=== PATIENT | male | born 2000 | race Caucasian/White ===

== ENCOUNTER 2020-01-18 00:21 | Emergency (ER) | payer OTHER, SELFPAY ==
--- NOTE | ~2020-01-18 | CT_ITS ---
EXAMINATION: CT abdomen pelvis w con DATE: 01/18/2020 02:00 INDICATION: Low abdominal pain. TECHNIQUE: Computed tomography (CT) of the abdomen and pelvis was performed with 100 mL Omnipaque 350 intravenous contrast. Automated exposure control and iterative reconstruction technique were employe d. The dose-length product was 367.91 mGy-cm. COMPARISON: None. FINDINGS: The visualized portions of the lung bases are clear without pneumonia or pleural effusion. The heart size is normal. No pericardial effusion. The liver, gallbladder, spleen, pancreas, and adre nal glands are normal. There is mild bilateral hydronephrosis and hydroureter, likely secondary to ma rked bladder distention. There are no dilated loops of bowel. The appendix is normal. There are no pa thologically enlarged lymph nodes. There is no free intraperitoneal fluid. There is mild lumbar spond ylosis. IMPRESSION: 1. Mild bilateral hydronephrosis and hydroureter, likely secondary to marked gallbladder distention. Reviewed, dictated and finalized at location A. IMPRESSION: 1. Mild bilateral hydronephrosis and hydroureter, likely secondary to marked ga llbladder distention.
[2020-01-18 00:23] VITALS: BP 133/92; PULSE 86; RESP 16; TEMP 36.6; O2SAT 99
--- NOTE | 2020-01-18 00:39 | ED.ALCOHOL ---
HPI - Alcohol General Chief Complaint: Alcohol Stated Complaint: n/v Time Seen by Provider: 01/18/20 00:22 Source: patient Mode of arrival: EMS Limitations: no limitations History of Present Illness HPI narrative: This patient is a 19 year old male who presents for evaluation of nausea, vomiting and abdominal pain. Patient reports that he has been drinking a lot of alcohol tonight, and he had too many to count. He states he developed mid constant abdominal pain with nausea and vomiting a couple hours ago. He states he stopped vomiting but he continues to have severe burning abdominal pain so he called EMS. He denies fever, chills or diarrhea. Related Data Allergies Allergy/AdvReac Type Severity Reaction Status Date / Time No Known Allergies Allergy Verified 04/20/18 20:00 Review of Systems Review of Systems: All systems reviewed & are unremarkable except as noted in HPI and below ENT: Reports dizziness Gastrointestinal: Gastrointestinal: Reports abdominal pain, Reports nausea and Reports vomiting Musculoskeletal: Musculoskeletal: Denies back pain PMFSH Past Medical History Medical History (Updated 01/18/20 @ 02:01 by Marianne David MD) Patient denies medical problems Surgical History Surgical History (Updated 01/18/20 @ 00:39 by Marianne David MD) No significant past surgical history Social History Social History (Updated 01/18/20 @ 00:39 by Marianne David MD) Alcohol intake: current Substance use: never Exam Const: Orientation/consciousness: patient oriented x3 Other: patient laying in bed with eyes closed but able to answer all questions. HENMT: Head: normocephalic and atraumatic Face and sinus: face symmetric Mouth: Yes Normal oral and palatal mucosa present, Yes lip normal and Yes oropharynx normal Throat: posterior oropharynx normal, tonsils normal and uvula midline Eyes: Pupils: Equal, round and reactive pupils present EOM: EOMs intact bilaterally Chest: Chest palpation & inspection: normal inspection of the chest Resp: Effort & Inspection: normal respiratory effort and no retractions Auscultation: clear to auscultation bilaterally Cardio: Rate: regular rate Rhythm: regular rhythm Heart sounds: no murmurs GI: GI Palp: Yes Soft to palpation, Yes Tenderness to palpation present (GI) (Diffuse, worse in upper abdomen), No Guarding due to palpation present (GI) and No Rigid due to palpation Skin: General skin exam: normal color Rashes: no rashes Neuro: General: patient oriented x3 and moves all extremities Course Reevaluation(s) Reevaluation #1: On reevaluation , patient is sleeping. He reports his pain is 7/10 . He now has RLQ abdominal tenderness so will CT Date: 01/18/20 Time: 01:33 Reevaluation #2: I discussed CT shows distended bladder and his family states that he was able to urinate a large amount just before I walked in. Date: 01/18/20 Time: 02:10 Vital Signs Vital signs: Vital Signs Temperature 97.9 F 01/18/20 00:23 Pulse Rate 86 01/18/20 00:23 Respiratory Rate 16 01/18/20 00:23 Blood Pressure 133/92 H 01/18/20 00:23 Pulse Oximetry 99 01/18/20 00:23 Temperature 97.9 F 01/18/20 00:23 Pulse Rate 67 01/18/20 02:29 Respiratory Rate 16 01/18/20 02:29 Blood Pressure 126/77 01/18/20 02:29 Pulse Oximetry 97 01/18/20 02:29 MDM - Alcohol Lab Data Attestation: I reviewed the patient's lab results. Result diagrams: 01/18/20 00:46 01/18/20 00:46 Labs: Lab Results 01/18/20 01/18/20 01/18/20 Range/Units 00:46 00:46 01:38 WBC 11.3 H (4.5-10.0) K/mm3 RBC 4.38 L (4.6-6.20) M/mm3 Hgb 12.8 L (14.0-18.0) g/dL Hct 37.4 L (42.0-52.0) % MCV 85.4 (80-100) fl MCH 29.2 (26-34) pg MCHC 34.2 (32-36) g/dl RDW 11.9 (11.5-14.5) % Plt Count 208 (150-375) k/mm3 MPV 9.6 (7.4-10.4) fl Immature Gran % (Auto) 0.4 (0-0.5) % Neut % (Auto) 83.7
[2020-01-18] MEDS: PANTOPRAZOLE SODIUM IV 40 MG VIAL IV PUSH (00:45)
[2020-01-18] MEDS: ONDANSETRON INJ 4 MG/2 ML VIAL IV PUSH (00:46)
[2020-01-18 00:51] LABS: Basophils Percent Auto 0.4 % (0.2-1.2); Eosinophils Percent Auto 0.3 % (0-4.4); Hematocrit 37.4 % (42.0-52.0); Hemoglobin 12.8 g/dL (14.0-18.0); Immature Granulocyte Absolute 0.05 K/mm3 (0.00-0.031); Immature Granulocyte Percent A 0.4 % (0-0.5); Lymphocytes Absolute Auto 1.21 K/mm3 (0.9-3.2); Lymphocytes Percent Auto 10.7 % (18.3-44.2); Mean Corpuscular HGB Conc 34.2 g/dl (32-36); Mean Corpuscular Hemoglobin 29.2 pg (26-34); Mean Corpuscular Volume 85.4 fl (80-100); Mean Platelet Volume 9.6 fl (7.4-10.4); Monocytes Absolute Auto 0.5 K/mm3 (0.1-0.6); Monocytes Percent Auto 4.5 % (2.6-8.5); Neutrophils Absolute Auto 9.5 K/mm3 (1.3-6.7); Neutrophils Percent Auto 83.7 % (45.5-73.1); Platelet Count Result 208 k/mm3 (150-375); Red Blood Count 4.38 M/mm3 (4.6-6.20); Red Cell Distribution Width 11.9 % (11.5-14.5); White Blood Count 11.3 K/mm3 (4.5-10.0)
[2020-01-18 01:00] VITALS: BP 118/81; PULSE 69; RESP 16; O2SAT 97
[2020-01-18 01:04] LABS: Alanine Aminotransferase 13 U/L (4-50); Albumin Level 4.2 g/dL (3.5-5.1); Alkaline Phosphatase 54 U/L (38-126); Anion Gap 8 mmol/L (8-16); Aspartate Amino Transferase 25 U/L (17-59); Bilirubin,Total 0.2 mg/dL (0.2-1.3); Blood Urea Nitrogen 15 mg/dL (9-20); Calcium 8.1 mg/dL (8.4-10.2); Carbon Dioxide 23 mmol/L (22-30); Chloride 109 mmol/L (98-107); Estimated CRCL calculation 114 ml/min; Estimated Glomerular Filt Rate > 60; Glucose 100 mg/dL (75-110); Lipase 45 U/L (23-300); Potassium 4.2 mmol/L (3.4-5.0); Sodium 140 mmol/L (137-145)
[2020-01-18 01:44] LABS: Add Urine Microscopic? NO; Appearance Urine Clear (Clear); Bilirubin Urine Negative (Negative); Blood Urine Negative (Negative); Color Urine Yellow (Yellow); Glucose Urine UA Negative (Negative); Ketones Urine Negative (Negative); Leukocyte Esterase Ur Negative LEU/UL (Negative); Nitrate Urine Negative (Negative); Protein Urine Negative (Negative); Specific Grav Ur 1.015 (1.001-1.035); Urobilinogen Urine Negative mg/dL (<2.0)
[2020-01-18 02:29] VITALS: BP 126/77; PULSE 67; RESP 16; O2SAT 97
== END 2020-01-18 02:30 | disposition home or self-care (01) ==
PROVIDERS: Emergency Provider General Practice
DX: F10.129 Alcohol abuse with intoxication, unspecified (principal); K29.20 Alcoholic gastritis without bleeding
CPT/HCPCS: 36415; 74177; 80053; 81003; 83690; 85025; 96365; 96367; 96375; 99284; C9113; J0131; J2405; J3411; J3475; J7030; Q9967